=== PATIENT | male | born 1995 | race Caucasian/White ===

== ENCOUNTER 2024-08-24 20:23 | Emergency (ER) | payer OTHER, SELFPAY ==
[2024-08-24 20:33] VITALS: BP 156/86; PULSE 94; RESP 18; TEMP 37.4; O2SAT 96
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
[2024-08-24 23:34] VITALS: BP 128/78; PULSE 83; O2SAT 98
== END 2024-08-25 00:16 | disposition home or self-care (01) ==
PROVIDERS: Emergency Provider Student in an Organized Health Care Education/Training Program
DX: S13.4XXA Sprain of ligaments of cervical spine, initial encounter (principal); V89.2XXA Person injured in unspecified motor-vehicle accident, traffic, initial encounter
CPT/HCPCS: 71250; 72125; 99281; 99284